=== PATIENT | male | born 1975 | race Caucasian/White ===

== ENCOUNTER 2022-12-24 22:55 | Outpatient (CLI) | payer OTHER, SELFPAY | END 2022-12-24 22:56 | disposition home or self-care (01) | LOC: AMB 01-06 02:14 | PROVIDERS: Visit Provider Emergency Medicine | DX: T75.4XXA Electrocution, initial encounter (principal); W86.1XXA Exposure to industrial wiring, appliances and electrical machinery, initial encounter; Y92.9 Unspecified place or not applicable | CPT/HCPCS: A0425; A0427 ==

== ENCOUNTER 2022-12-24 23:31 | Emergency (ER) | payer OTHER, SELFPAY ==
[2022-12-24 23:39] VITALS: BP 135/93; PULSE 90; RESP 18; TEMP 36.6; O2SAT 93
[2022-12-24 23:57] VITALS: O2SAT 95
[2022-12-24] MEDS: 0.9 % SODIUM CHLORIDE 1000 ml 1,000 ML IV (23:57)
[2022-12-25] VITALS (11 sets, daily range): BP systolic 133–157; BP diastolic 74–109; PULSE 75–85; O2SAT 94–96
[2022-12-25 00:27] LABS: Basophils Absolute Auto 0.02 K/uL (0.00-0.30); Basophils Percent Auto 0.2 % (0.0-3.0); Eosinophils Absolute Auto 0.24 K/uL (0.00-0.50); Eosinophils Percent Auto 2.7 % (0.0-7.0); Hematocrit 42.8 % (37.0-53.0); Hemoglobin* 14.4 gm/dL (13.5-17.5); Immature Granulocytes Abs Auto 0.03 K/uL (0.00-0.30); Immature Granulocytes Pct Auto 0.3 %; Lymphocytes Percent Auto 19.6 % (20-44); Mean Corpuscular HGB Conc 34 gm/dL (32-36); Mean Corpuscular Hemoglobin 29 pg (26-34); Mean Corpuscular Volume 86 fL (80-100); Neutrophils Absolute Auto 5.98 K/uL (1.7-7.0); Neutrophils Percent Auto 67.2 % (42.0-72.0); Platelet Count* 242 K/uL (140-440); RDW Coefficient of Variation % 12.6 % (11.5-15.5); Red Blood Count 4.97 m/uL (4.30-5.90)
[2022-12-25 00:31] LABS: Slide Review Reflex No
[2022-12-25 00:36] LABS: Albumin* 4.5 g/dL (3.3-5.0)
[2022-12-25 00:37] LABS: Chloride* 108 mmol/L (96-114)
[2022-12-25 00:38] LABS: Potassium* 3.7 mmol/L (3.6-5.1); Sodium* 139 mmol/L (135-149)
[2022-12-25 00:39] LABS: Aspartate Amino Transferase* 37 U/L (12-35); Bilirubin Direct* 0.2 mg/dL (0.0-0.5); Bilirubin Total* 0.7 mg/dL (0.1-1.5); Total Protein* 8.2 g/dL (6.0-8.3)
[2022-12-25 00:40] LABS: Alanine Aminotransferase* 58 U/L (4-50); Alkaline Phosphatase* 83 U/L (40-150); Creatine Kinase* 186 U/L (54-186); Creatinine* 0.7 mg/dL (0.5-1.5); Estimated Glomerular Filt Rate 114 ml/min
[2022-12-25 00:41] LABS: Blood Urea Nitrogen* 14 mg/dL (5-24); Carbon Dioxide* 25 mmol/L (20-32); Glucose* 103 mg/dL (60-115)
[2022-12-25 00:44] LABS: C Reactive Protein* 0.7 mg/dL (0.5-1.0)
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
[2022-12-25] MEDS: IBUPROFEN 200 MG TABLET 600 MG PO (01:27)
== END 2022-12-25 02:16 | disposition home or self-care (01) ==
LOC: ED 12-25 01:32
PROVIDERS: Emergency Medicine; Emergency Provider Family Medicine
DX: T75.4XXA Electrocution, initial encounter (principal)
CPT/HCPCS: 36415; 80048; 80076; 81001; 82550; 84484; 85025; 86140; 93005; 94761; 99283; 99284; A9270; J7030